=== PATIENT | male | born 1960 | race Caucasian/White ===

== ENCOUNTER 2016-09-05 10:24 | Emergency (ER) | payer OTHER | END 2016-09-05 13:19 | disposition home or self-care (01) | LOC: ER 10:24 | DX: N41.9 Inflammatory disease of prostate, unspecified (principal); Z79.899 Other long term (current) drug therapy; Z88.8 Allergy status to other drugs, medicaments and biological substances | CPT/HCPCS: 36415; 96365; 96375; J0696 ==

== ENCOUNTER 2016-09-17 14:33 | Emergency (ER) | payer OTHER | END 2016-09-17 15:33 | disposition home or self-care (01) | LOC: ER 14:33 | DX: R33.9 Retention of urine, unspecified (principal); I10 Essential (primary) hypertension; Z79.899 Other long term (current) drug therapy; Z88.6 Allergy status to analgesic agent | CPT/HCPCS: 51702 ==

== ENCOUNTER 2016-09-19 07:20 | Emergency (ER) | payer OTHER | END 2016-09-19 08:49 | disposition home or self-care (01) | LOC: ER 07:20 | DX: R33.9 Retention of urine, unspecified (principal); I10 Essential (primary) hypertension; Z88.6 Allergy status to analgesic agent ==